=== PATIENT | female | born 1985 | race Caucasian/White ===

== ENCOUNTER 2022-09-16 14:09 | Outpatient (CLI) | payer BC | END 2022-09-16 14:10 | disposition home or self-care (01) | LOC: CSHRAD 14:09 | PROVIDERS: ATTEND Chiropractor | DX: M54.2 Cervicalgia (principal); M79.601 Pain in right arm; M47.812 Spondylosis without myelopathy or radiculopathy, cervical region | CPT/HCPCS: 72040 ==

== ENCOUNTER 2023-02-09 13:01 | Outpatient (CLI) | payer BC | END 2023-02-09 13:02 | disposition home or self-care (01) | LOC: CSHMAMMO 13:01 | PROVIDERS: ATTEND Obstetrics & Gynecology | DX: Z01.419 Encounter for gynecological examination (general) (routine) without abnormal findings (principal); Z98.82 Breast implant status | CPT/HCPCS: 77066; G0279 ==